=== PATIENT | female | born 1980 | race African-American/Black ===

== ENCOUNTER 2020-01-24 17:20 | Emergency (ER) | payer BC ==
[~2020-01-24] VITALS: Ht 170.2 cm; Wt 146.1 kg
--- NOTE | 2020-01-24 17:20 | NUR ---
dr sarabia at bedside
--- NOTE | 2020-01-24 17:23 | NUR ---
bib ra c/o shortness of breath with weakness , to er bed 3, hooked to monitor, changed to hosp gown, warm blanket provided, awaiting md isbell
[2020-01-24 18:13] LABS: BASOPHILS # (AUTO) 0.1 /CMM (0.0-0.2); BASOPHILS % (AUTO) 0.7 % (0.0-2.0); EOSINOPHILS % (AUTO) 2.3 % (0.0-6.0); HEMATOCRIT 37 % (33-45); HEMOGLOBIN 11.8 g/dL (11.5-14.8); LYMPHOCYTES # (AUTO) 2.1 /CMM (0.8-4.8); LYMPHOCYTES % (AUTO) 21.7 % (20.0-44.0); MEAN CORPUSCULAR HGB CONC 32 g/dl (31.0-36.0); MEAN CORPUSCULAR VOLUME 76 fL (82-100); MONOCYTES # (AUTO) 0.6 /CMM (0.1-1.30); NEUTROPHILS # (AUTO) 6.8 /CMM (1.8-8.9); NEUTROPHILS % (AUTO) 69.3 % (43.0-81.0); PLATELET COUNT (AUTO) 297 /CMM (150-450); RED BLOOD CELL COUNT(AUTO) 4.82 MIL/uL (4.0-5.2); WHITE BLOOD COUNT (AUTO) 9.9 K/uL (4.3-11.0)
[2020-01-24 18:26] LABS: CARBON DIOXIDE 29 mmol/L (21-32); CHLORIDE 103 mmol/L (98-107); CREATININE 0.9 mg/dL (0.6-1.3); GLUCOSE 129 mg/dL (74-106); POTASSIUM 3.9 mmol/L (3.5-5.1); SODIUM SERUM 139 mmol/L (136-145); UREA NITROGEN, BLOOD 12 mg/dL (7-18)
[2020-01-24 18:39] LABS: ALANINE AMINOTRANSFERASE 29 U/L (12-78); ALBUMIN 3.4 g/dL (3.4-5.0); ALKALINE PHOSPHATASE 82 U/L (46-116); ASPARTATE AMINOTRANSFERASE 14 U/L (15-37); B-TYPE NATRIURETIC PEPTIDE 13 PG/ML (0-125); BILIRUBIN,TOTAL 0.1 mg/dL (0.2-1.0); TOTAL PROTEIN, SERUM 8.1 g/dL (6.4-8.2)
--- NOTE | 2020-01-24 19:10 | NUR ---
report given to tye yap for larry
--- NOTE | 2020-01-24 19:23 | NUR ---
PT RECEIVED FROM LUPIS RICHARDS FOR ESTPEHANIE.
--- NOTE | 2020-01-24 19:33 | NUR ---
md at bedside talking to pt
[2020-01-24] MEDS ORDERED: ACETAMINOPHEN ES 500 MG TABLET ONE (19:48)
[2020-01-24 19:55] VITALS: BP 148/85
--- NOTE | 2020-01-24 19:55 | NUR ---
Patient discharged to home in stable condition. Written and verbal after care instructions given. Patient verbalizes understanding of instruction. Pt ambulatory with a steady gait
[2020-01-24] MEDS ORDERED: ACETAMINOPHEN ES 500 MG TABLET PO ONE (20:00)
== END 2020-01-24 19:57 | disposition home or self-care (01) ==
LOC: ER 17:21
DX: R06.00 Dyspnea, unspecified (principal); R91.8 Other nonspecific abnormal finding of lung field; R07.89 Other chest pain
CPT/HCPCS: 36415; 71045-TC; 80048-TC; 80076-TC; 83880; 84484-TC; 84702-TC; 85025-TC